=== PATIENT | male | born 1955 | race Caucasian/White ===

== ENCOUNTER → 2017-12-04 | Outpatient (CLI) | payer BC | LOC: RAD 10:47 | PROVIDERS: ATTEND General Practice | DX: Z00.00 Encounter for general adult medical examination without abnormal findings (principal) | CPT/HCPCS: 93005 ==

== ENCOUNTER → 2018-01-01 | Outpatient (CLI) | payer BC ==
--- NOTE | 2018-01-01 09:29 | Diagnostic Imaging Report ---
PROCEDURE: X-RAY CHEST, TWO VIEWS COMPARISON: None. INDICATIONS: CHECK UP FILM. DENIES COMPLAINT FINDINGS: LUNGS: No consolidations or edema. PLEURA: No effusions or pneumothorax. HEART \T\ MEDIASTINUM: The heart is within normal size-limits. BONES \T\ SOFT TISSUES: No acute findings. CONCLUSION: No acute thoracic abnormality. Dictated by: Marin Velazquez M.D. on 01/01/2018 at 9:29 Electronically approved by: Marin Velazquez M.D. on 01/01/2018 at 9:29
== END ==
LOC: RAD 08:35
PROVIDERS: ATTEND General Practice
DX: Z00.00 Encounter for general adult medical examination without abnormal findings (principal)
CPT/HCPCS: 71046